=== PATIENT | female | born 1945 ===

== ENCOUNTER 2018-05-10 09:26 | Outpatient (CLI) | payer MEDICARE | END 2018-05-10 09:27 | disposition home or self-care (01) | LOC: C.LAB 09:26 | DX: R10.32 Left lower quadrant pain (principal); K57.32 Diverticulitis of large intestine without perforation or abscess without bleeding ==

== ENCOUNTER 2018-05-16 10:03 | Outpatient (CLI) | payer MEDICARE | END 2018-05-16 10:04 | disposition home or self-care (01) | LOC: C.CTH 10:03 | DX: K57.32 Diverticulitis of large intestine without perforation or abscess without bleeding (principal); R10.32 Left lower quadrant pain ==